=== PATIENT | female | born 1990 | race Two or more races ===

== ENCOUNTER 2020-04-11 17:34 | Observation (INO) | payer OTHER, SELFPAY ==
[~2020-04-11] VITALS: Ht 160 cm; Wt 94.8 kg
[2020-04-11] MEDS ORDERED: FAMOTIDINE 20 MG TAB PO SCH (17:50)
[2020-04-11] MEDS ORDERED: PNV91TAB10 PO (17:55)
[2020-04-11] MEDS ORDERED: PANTOPRAZOLE 40 MG TABEC PO SCH (18:00)
[2020-04-11 18:19] LABS: BASOPHILS % (AUTO) 0.2 % (0.0-2.0); EOSINOPHILS # (AUTO) 0.1 K/uL (0-0.4); EOSINOPHILS % (AUTO) 0.6 % (0.0-4.0); HEMATOCRIT 37.6 % (36-48); HEMOGLOBIN 12.5 g/dL (12.0-16.0); LYMPHOCYTES % (AUTO) 17.9 % (20.5-51.1); MEAN CORPUSCULAR HEMOGLOBIN 30 pg (27-31); MEAN CORPUSCULAR HGB CONC 33 g/dL (33-37); MEAN CORPUSCULAR VOLUME 90.5 fL (80-94); MONOCYTES # (AUTO) 0.9 K/uL (0.8-1.0); MONOCYTES % (AUTO) 7.8 % (1.7-9.3); NEUTROPHILS # (AUTO) 8.1 K/uL (1.8-7.7); NEUTROPHILS % (AUTO) 73.5 % (42.2-75.2); PLATELET COUNT (AUTO) 317 K/uL (140-450); RED BLOOD CELL COUNT(AUTO) 4.16 MIL/uL (4.20-5.40); RED CELL DISTRIBUTION WIDTH 13.2 % (11.6-13.7); WHITE BLOOD COUNT (AUTO) 11.1 K/uL (4.8-10.8)
[2020-04-11 18:24] LABS: APPEARANCE,URINE CLEAR (CLEAR); BILIRUBIN,URINE NEGATIVE (NEGATIVE); BLOOD, URINE NEGATIVE (NEGATIVE); COLOR,URINE YELLOW (YELLOW); LEUKOCYTE ESTERASE ,URINE NEGATIVE (NEGATIVE); NITRITE, URINE NEGATIVE (NEGATIVE); PH,URINE 6.5 (5.0-9.0); UGLUCOSE NEGATIVE (NEGATIVE)
[2020-04-11 18:40] LABS: ALBUMIN 2.8 g/dL (3.4-5.0); ANION GAP 13.7 (8-16); CARBON DIOXIDE 23.9 mmol/L (21-32); CREATININE 0.7 mg/dL (0.6-1.3); POTASSIUM 3.6 mmol/L (3.5-5.1); TOTAL BILIRUBIN 0.6 mg/dL (0.0-1.0)
[2020-04-11] MEDS ORDERED: ONDANSETRON 4 MG/2 ML VIAL IVP PRN (19:00)
[2020-04-11] MEDS ORDERED: MORPHINE SULFATE 5 MG/ML VIAL IVP PRN (19:00)
[2020-04-11] MEDS ORDERED: MORPHINE SULFATE 10 MG/ML VIAL ONE ×2 (19:38→23:00)
[2020-04-11] MEDS: LACTATED RINGERS 1,000 ML IV SCH (19:46)
[2020-04-11] MEDS ORDERED: PROMETHAZINE 25 MG/ML VIAL IVP PRN (19:50)
[2020-04-11] MEDS ORDERED: PROMETHAZINE 25 MG/ML VIAL ONE (19:54)
[2020-04-11] MEDS ORDERED: diphenhydrAMINE 50 MG/ML VIAL ONE (21:39)
[2020-04-11] MEDS ORDERED: diphenhydrAMINE 50 MG/ML VIAL IVP SCH (21:40)
[2020-04-11] MEDS ORDERED: MORPHINE SULFATE 5 MG/ML VIAL IM PRN (22:10)
[2020-04-11] MEDS: PROMETHAZINE 25 MG/ML VIAL IM PRN (23:09)
[2020-04-12] MEDS: LACTATED RINGERS 1,000 ML IV SCH ×2 (01:58→11:00)
[2020-04-12] MEDS ORDERED: MORPHINE SULFATE 10 MG/ML VIAL ONE (05:52)
[2020-04-12] MEDS: PROMETHAZINE 25 MG/ML VIAL IM PRN (05:59)
[2020-04-12 06:00] VITALS: BP 130/63
--- NOTE | 2020-04-12 08:54 | NUR ---
PATIENT HAS BEEN SCREENED AND CATEGORIZED LOW NUTRITION RISK. PATIENT WILL BE SEEN WITHIN 7 DAYS OF ADMISSION. 04/18/[address]
== END 2020-04-12 19:45 | disposition home or self-care (01) ==
LOC: MLD 17:34
PROVIDERS: ADMIT Obstetrics & Gynecology; ATTEND Obstetrics & Gynecology
DX: O99.612 Diseases of the digestive system complicating pregnancy, second trimester (principal); K21.9 Gastro-esophageal reflux disease without esophagitis; Z20.822 Contact with and (suspected) exposure to COVID-19; O21.2 Late vomiting of pregnancy; O99.342 Other mental disorders complicating pregnancy, second trimester; F32.9 Major depressive disorder, single episode, unspecified; O99.512 Diseases of the respiratory system complicating pregnancy, second trimester; J45.909 Unspecified asthma, uncomplicated; O24.912 Unspecified diabetes mellitus in pregnancy, second trimester; Z3A.22 22 weeks gestation of pregnancy
CPT/HCPCS: 36415; 59025; 80053; 81003; 85025; 87426; 96361; 96372; 96374; G0378; J1200; J2270; J2550; J7120; J2405

== ENCOUNTER 2020-04-17 05:17 | Observation (INO) | payer OTHER, SELFPAY ==
[~2020-04-17] VITALS: Ht 157.5 cm; Wt 94.8 kg
[~2020-04-17 05:17] MED LIST: PNV91TAB10 PO
[2020-04-17 07:19] VITALS: BP 124/61
[2020-04-17] MEDS ORDERED: CYCLOBENZAPRINE 10 MG TAB PO SCH (09:00)
--- NOTE | 2020-04-17 09:47 | NUR ---
PATIENT HAS BEEN SCREENED AND CATEGORIZED LOW NUTRITION RISK. PATIENT WILL BE SEEN WITHIN 7 DAYS OF ADMISSION. 04/24/20 MARYANN PARRY MBA, RD
[2020-04-17] MEDS ORDERED: LACTATED RINGERS 1,000 ML IV SCH ×2 (11:35→12:45)
[2020-04-17] MEDS ORDERED: PROMETHAZINE 25 MG/ML VIAL IVP SCH (11:35)
[2020-04-17] MEDS ORDERED: METOCLOPRAMIDE 10 MG/2 ML INJ VIAL IVP SCH (11:35)
[2020-04-17 12:03] LABS: BASOPHILS # (AUTO) 0.1 K/uL (0.00-0.22); BASOPHILS % (AUTO) 0.5 % (0.0-2.0); EOSINOPHILS # (AUTO) 0.1 K/uL (0-0.4); EOSINOPHILS % (AUTO) 0.5 % (0.0-4.0); HEMATOCRIT 40.1 % (36-48); HEMOGLOBIN 13.6 g/dL (12.0-16.0); LYMPHOCYTES # (AUTO) 1.8 K/uL (2.5-16.5); LYMPHOCYTES % (AUTO) 16.2 % (20.5-51.1); MEAN CORPUSCULAR HEMOGLOBIN 31 pg (27-31); MEAN CORPUSCULAR HGB CONC 34 g/dL (33-37); MEAN CORPUSCULAR VOLUME 90.4 fL (80-94); MONOCYTES # (AUTO) 0.7 K/uL (0.8-1.0); NEUTROPHILS # (AUTO) 8.4 K/uL (1.8-7.7); NEUTROPHILS % (AUTO) 76.8 % (42.2-75.2); PLATELET COUNT (AUTO) 326 K/uL (140-450); RED BLOOD CELL COUNT(AUTO) 4.43 MIL/uL (4.20-5.40); RED CELL DISTRIBUTION WIDTH 13.1 % (11.6-13.7)
[2020-04-17 12:19] LABS: ALBUMIN 3.1 g/dL (3.4-5.0); TOTAL BILIRUBIN 0.6 mg/dL (0.0-1.0)
[2020-04-17 12:31] LABS: ANION GAP 15.2 (8-16); CARBON DIOXIDE 25.9 mmol/L (21-32); CREATININE 0.7 mg/dL (0.6-1.3); POTASSIUM 4.1 mmol/L (3.5-5.1)
[2020-04-17] MEDS ORDERED: MORPHINE SULFATE 10 MG/ML VIAL IVP SCH (12:45)
[2020-04-17] MEDS ORDERED: ONDANSETRON 4 MG/2 ML VIAL IVP PRN (12:45)
[2020-04-17 13:01] VITALS: BP 105/53
[2020-04-17 15:49] LABS: BILIRUBIN,URINE 1+ (NEGATIVE); BLOOD, URINE NEGATIVE (NEGATIVE); LEUKOCYTE ESTERASE ,URINE TRACE (NEGATIVE); NITRITE, URINE NEGATIVE (NEGATIVE); UGLUCOSE NEGATIVE (NEGATIVE)
[2020-04-17 15:53] LABS: APPEARANCE,URINE HAZY (CLEAR); COLOR,URINE YELLOW (YELLOW)
[2020-04-17 17:06] LABS: RBC,URINE 0-5 /HPF (0-5)
== END 2020-04-17 17:40 | disposition home or self-care (01) ==
LOC: MLD 05:17
PROVIDERS: ADMIT Obstetrics & Gynecology; ATTEND Obstetrics & Gynecology
DX: O99.891 Other specified diseases and conditions complicating pregnancy (principal); M54.5 Low back pain; O99.612 Diseases of the digestive system complicating pregnancy, second trimester; K80.50 Calculus of bile duct without cholangitis or cholecystitis without obstruction; O26.892 Other specified pregnancy related conditions, second trimester; R10.2 Pelvic and perineal pain; O46.92 Antepartum hemorrhage, unspecified, second trimester; Z3A.23 23 weeks gestation of pregnancy
CPT/HCPCS: 36415; 76705; 76817; 80053; 81001; 82150; 83690; 85025; 87086; 96361; 96374; 96375; G0378; J2270; J2405; J2765; J7120

== ENCOUNTER 2020-05-11 21:09 | Inpatient (IN) | payer OTHER, SELFPAY ==
[~2020-05-11] VITALS: Ht 160 cm; Wt 98.9 kg
[2020-05-11] MEDS ORDERED: FERR325E14 PO (22:05)
[2020-05-11 22:35] LABS: APPEARANCE,URINE SL CLOUDY (CLEAR); BILIRUBIN,URINE NEGATIVE (NEGATIVE); BLOOD, URINE NEGATIVE (NEGATIVE); COLOR,URINE YELLOW (YELLOW); LEUKOCYTE ESTERASE ,URINE NEGATIVE (NEGATIVE); NITRITE, URINE NEGATIVE (NEGATIVE); PH,URINE 7.5 (5.0-9.0); UGLUCOSE NEGATIVE (NEGATIVE)
[2020-05-11 22:35] LABS: BASOPHILS # (AUTO) 0.1 K/uL (0.00-0.22); BASOPHILS % (AUTO) 0.4 % (0.0-2.0); EOSINOPHILS # (AUTO) 0.1 K/uL (0-0.4); EOSINOPHILS % (AUTO) 0.9 % (0.0-4.0); HEMATOCRIT 33.8 % (36-48); HEMOGLOBIN 11.2 g/dL (12.0-16.0); LYMPHOCYTES # (AUTO) 2.1 K/uL (2.5-16.5); LYMPHOCYTES % (AUTO) 15.3 % (20.5-51.1); MEAN CORPUSCULAR HEMOGLOBIN 30 pg (27-31); MEAN CORPUSCULAR HGB CONC 33 g/dL (33-37); MEAN CORPUSCULAR VOLUME 89.8 fL (80-94); MONOCYTES # (AUTO) 0.8 K/uL (0.8-1.0); NEUTROPHILS # (AUTO) 10.5 K/uL (1.8-7.7); NEUTROPHILS % (AUTO) 77.4 % (42.2-75.2); PLATELET COUNT (AUTO) 326 K/uL (140-450); RED BLOOD CELL COUNT(AUTO) 3.76 MIL/uL (4.20-5.40); RED CELL DISTRIBUTION WIDTH 13.4 % (11.6-13.7); WHITE BLOOD COUNT (AUTO) 13.6 K/uL (4.8-10.8)
[2020-05-11 22:55] LABS: ALBUMIN 2.6 g/dL (3.4-5.0); ANION GAP 12.7 (8-16); CARBON DIOXIDE 26.9 mmol/L (21-32); CREATININE 0.7 mg/dL (0.6-1.3); POTASSIUM 3.6 mmol/L (3.5-5.1); TOTAL BILIRUBIN 0.3 mg/dL (0.0-1.0)
[2020-05-11] MEDS ORDERED: MORPHINE SULFATE 10 MG/ML VIAL ONE (22:55)
[2020-05-11] MEDS: ONDANSETRON 4 MG/2 ML VIAL IVP PRN (23:10)
[2020-05-11 23:24] VITALS: BP 126/66
[2020-05-12] MEDS: LACTATED RINGERS 1,000 ML IV SCH ×3 (04:42→18:22)
[2020-05-12] MEDS: PANTOPRAZOLE 40 MG INJ VIAL IVP SCH (07:42)
[2020-05-12] MEDS ORDERED: BETAMETH ACET/BETAMETH NA PH 30 MG/5 ML VIAL IM ONE (08:21)
[2020-05-12] MEDS ORDERED: NACL 0.9% IVP SCH (09:00)
[2020-05-12] MEDS ORDERED: BETAMETH ACET/BETAMETH NA PH 30 MG/5 ML VIAL IM SCH (09:00)
[2020-05-12] MEDS ORDERED: PANTOPRAZOLE IVP SCH (09:00)
--- NOTE | 2020-05-12 09:11 | NUR ---
PATIENT HAS BEEN SCREENED AND CATEGORIZED LOW NUTRITION RISK. PATIENT WILL BE SEEN WITHIN 7 DAYS OF ADMISSION. 05/18/[address]
[2020-05-12] MEDS ORDERED: INSULIN LISPRO SLIDING SCALE 100 UNITS/ML VIAL SUBQ PRN (18:30)
[2020-05-12] MEDS ORDERED: DEXTROSE 50% 50 ML SYR IVP PRN (18:45)
[2020-05-13] MEDS: ONDANSETRON 4 MG/2 ML VIAL IVP PRN (05:46)
[2020-05-13] MEDS ORDERED: BUPIVACAINE-MPF/EPI 0.25% 10 ML VIAL INJ ONE ×2 (07:48→17:42)
[2020-05-13] MEDS ORDERED: LIDOCAINE 1% 500 MG/50 ML VIAL ONE (07:51)
[2020-05-13 08:30] LABS: PROTHROMBIN TIME 9.4 secs (10.8-13.4)
[2020-05-13] MEDS ORDERED: BETAMETH ACET/BETAMETH NA PH 30 MG/5 ML VIAL IM ONE (08:35)
[2020-05-13] MEDS: PANTOPRAZOLE 40 MG INJ VIAL IVP SCH (09:04)
[2020-05-13] MEDS: LACTATED RINGERS 1,000 ML IV SCH ×3 (09:08→23:43)
[2020-05-13] MEDS ORDERED: fentaNYL citrate 0.05 MG/ML VIAL ONE (16:47)
[2020-05-13] MEDS ORDERED: SEVOFLURANE 250 ML BTL INH ONE (16:47)
[2020-05-13] MEDS ORDERED: DEXAMETHASONE 4 MG/ML VIAL ONE (16:47)
[2020-05-13] MEDS ORDERED: PROPOFOL 200 MG/20 ML VIAL IV ONE (16:47)
[2020-05-13] MEDS ORDERED: SUCCINYLCHOLINE CHLORIDE 200 MG/10 ML VIAL IVP ONE (16:47)
[2020-05-13] MEDS ORDERED: HYDROmorphone 1 MG/ML AMP IVP PRN ×2 (17:30→17:55)
[2020-05-13] MEDS ORDERED: BLOOD GLUCOSE MONITORING 1 DEV DEV FS ONE (17:30)
[2020-05-13] MEDS ORDERED: diphenhydrAMINE 50 MG/ML VIAL IVP PRN (17:30)
[2020-05-13] MEDS ORDERED: ONDANSETRON 4 MG/2 ML VIAL IVP PRN (17:30)
[2020-05-13] MEDS: HYDROmorphone PFS 2 MG/ML SYR ONE ×2 (18:05→18:15)
[2020-05-13] MEDS: HYDROcodone/APAP 5/325 MG 1 TAB TAB PO PRN (21:13)
[2020-05-14] MEDS ORDERED: HYDROmorphone PFS 2 MG/ML SYR ONE (00:19)
[2020-05-14] MEDS: LACTATED RINGERS 1,000 ML IV SCH ×3 (01:31→16:30)
[2020-05-14] MEDS: HYDROcodone/APAP 5/325 MG 1 TAB TAB PO PRN (07:48)
[2020-05-14] MEDS: PANTOPRAZOLE 40 MG INJ VIAL IVP SCH (09:17)
[2020-05-14 11:10] LABS: BASOPHILS % (AUTO) 0.1 % (0.0-2.0); EOSINOPHILS % (AUTO) 0.1 % (0.0-4.0); HEMATOCRIT 27.9 % (36-48); HEMOGLOBIN 9.2 g/dL (12.0-16.0); LYMPHOCYTES # (AUTO) 2.4 K/uL (2.5-16.5); LYMPHOCYTES % (AUTO) 16.7 % (20.5-51.1); MEAN CORPUSCULAR HEMOGLOBIN 30 pg (27-31); MEAN CORPUSCULAR HGB CONC 33 g/dL (33-37); MEAN CORPUSCULAR VOLUME 90.2 fL (80-94); NEUTROPHILS % (AUTO) 76.1 % (42.2-75.2); PLATELET COUNT (AUTO) 259 K/uL (140-450); RED BLOOD CELL COUNT(AUTO) 3.09 MIL/uL (4.20-5.40); RED CELL DISTRIBUTION WIDTH 13.6 % (11.6-13.7); WHITE BLOOD COUNT (AUTO) 14.4 K/uL (4.8-10.8)
[2020-05-14 13:24] LABS: ALBUMIN 2.1 g/dL (3.4-5.0); ANION GAP 13.3 (8-16); CARBON DIOXIDE 23.4 mmol/L (21-32); CREATININE 0.7 mg/dL (0.6-1.3); POTASSIUM 3.7 mmol/L (3.5-5.1); TOTAL BILIRUBIN 0.3 mg/dL (0.0-1.0)
[2020-05-14 14:23] LABS: APPEARANCE,URINE CLEAR (CLEAR); BILIRUBIN,URINE NEGATIVE (NEGATIVE); BLOOD, URINE NEGATIVE (NEGATIVE); LEUKOCYTE ESTERASE ,URINE NEGATIVE (NEGATIVE); NITRITE, URINE NEGATIVE (NEGATIVE); PH,URINE 6.5 (5.0-9.0); UGLUCOSE NEGATIVE (NEGATIVE)
[2020-05-14 14:24] LABS: COLOR,URINE STRAW (YELLOW)
[2020-05-14 16:28] LABS: BASOPHILS % (AUTO) 0.2 % (0.0-2.0); EOSINOPHILS # (AUTO) 0.1 K/uL (0-0.4); EOSINOPHILS % (AUTO) 0.4 % (0.0-4.0); HEMATOCRIT 26.7 % (36-48); HEMOGLOBIN 8.8 g/dL (12.0-16.0); LYMPHOCYTES # (AUTO) 2.7 K/uL (2.5-16.5); LYMPHOCYTES % (AUTO) 20.2 % (20.5-51.1); MEAN CORPUSCULAR HEMOGLOBIN 30 pg (27-31); MEAN CORPUSCULAR HGB CONC 33 g/dL (33-37); MEAN CORPUSCULAR VOLUME 89.8 fL (80-94); MONOCYTES % (AUTO) 7.9 % (1.7-9.3); NEUTROPHILS # (AUTO) 9.4 K/uL (1.8-7.7); NEUTROPHILS % (AUTO) 71.3 % (42.2-75.2); PLATELET COUNT (AUTO) 269 K/uL (140-450); RED BLOOD CELL COUNT(AUTO) 2.97 MIL/uL (4.20-5.40); WHITE BLOOD COUNT (AUTO) 13.2 K/uL (4.8-10.8)
[2020-05-14] MEDS: ACETAMINOPHEN 325 MG TAB PO PRN (16:46)
[2020-05-15] MEDS: LACTATED RINGERS 1,000 ML IV SCH ×3 (01:31→19:57)
[2020-05-15 05:59] LABS: BASOPHILS % (AUTO) 0.3 % (0.0-2.0); EOSINOPHILS # (AUTO) 0.1 K/uL (0-0.4); EOSINOPHILS % (AUTO) 1.1 % (0.0-4.0); HEMATOCRIT 27.3 % (36-48); HEMOGLOBIN 8.9 g/dL (12.0-16.0); LYMPHOCYTES # (AUTO) 2.9 K/uL (2.5-16.5); MEAN CORPUSCULAR HEMOGLOBIN 30 pg (27-31); MEAN CORPUSCULAR HGB CONC 33 g/dL (33-37); MEAN CORPUSCULAR VOLUME 90.8 fL (80-94); MONOCYTES # (AUTO) 0.9 K/uL (0.8-1.0); MONOCYTES % (AUTO) 7.5 % (1.7-9.3); NEUTROPHILS # (AUTO) 8.6 K/uL (1.8-7.7); NEUTROPHILS % (AUTO) 68.1 % (42.2-75.2); PLATELET COUNT (AUTO) 286 K/uL (140-450); RED BLOOD CELL COUNT(AUTO) 3.01 MIL/uL (4.20-5.40); RED CELL DISTRIBUTION WIDTH 13.5 % (11.6-13.7); WHITE BLOOD COUNT (AUTO) 12.6 K/uL (4.8-10.8)
[2020-05-15] MEDS: ACETAMINOPHEN 325 MG TAB PO PRN ×2 (07:35→16:31)
[2020-05-15] MEDS: PANTOPRAZOLE 40 MG INJ VIAL IVP SCH (08:50)
[2020-05-15] MEDS: SIMETHICONE 80 MG TAB.CHEW PO PRN ×2 (09:26→21:11)
[2020-05-15] MEDS: DOCUSATE SODIUM 100 MG GELCAP PO PRN ×2 (09:26→21:12)
[2020-05-15] MEDS: bisacodyL 5 MG TABEC PO PRN ×2 (09:26→21:24)
[2020-05-15] MEDS ORDERED: MORPHINE SULFATE 10 MG/ML VIAL ONE ×4 (10:35→22:10)
[2020-05-15] MEDS: MORPHINE SULFATE 5 MG/ML VIAL IVP PRN ×3 (10:41→17:49)
[2020-05-15] MEDS: ONDANSETRON 4 MG/2 ML VIAL IVP PRN ×2 (17:48→22:22)
[2020-05-16] MEDS ORDERED: MORPHINE SULFATE 10 MG/ML VIAL ONE (02:10)
[2020-05-16 02:21] VITALS: BP 119/64
[2020-05-16] MEDS: ONDANSETRON 4 MG/2 ML VIAL IVP PRN (02:21)
[2020-05-16] MEDS: ACETAMINOPHEN 325 MG TAB PO PRN ×2 (03:58→10:05)
[2020-05-16] MEDS: LACTATED RINGERS 1,000 ML IV SCH (04:11)
[2020-05-16 08:11] LABS: BASOPHILS % (AUTO) 0.3 % (0.0-2.0); EOSINOPHILS # (AUTO) 0.1 K/uL (0-0.4); HEMATOCRIT 28.8 % (36-48); HEMOGLOBIN 9.6 g/dL (12.0-16.0); LYMPHOCYTES # (AUTO) 1.9 K/uL (2.5-16.5); LYMPHOCYTES % (AUTO) 18.9 % (20.5-51.1); MEAN CORPUSCULAR HEMOGLOBIN 30 pg (27-31); MEAN CORPUSCULAR HGB CONC 33 g/dL (33-37); MONOCYTES # (AUTO) 0.6 K/uL (0.8-1.0); MONOCYTES % (AUTO) 6.4 % (1.7-9.3); NEUTROPHILS # (AUTO) 7.3 K/uL (1.8-7.7); NEUTROPHILS % (AUTO) 73.4 % (42.2-75.2); PLATELET COUNT (AUTO) 259 K/uL (140-450); RED BLOOD CELL COUNT(AUTO) 3.17 MIL/uL (4.20-5.40); RED CELL DISTRIBUTION WIDTH 13.5 % (11.6-13.7); WHITE BLOOD COUNT (AUTO) 9.9 K/uL (4.8-10.8)
[2020-05-16] MEDS: DOCUSATE SODIUM 100 MG GELCAP PO PRN (08:57)
[2020-05-16] MEDS: PANTOPRAZOLE 40 MG INJ VIAL IVP SCH (08:57)
== END 2020-05-16 10:46 | disposition home or self-care (01) | DRG 951 ==
LOC: MLD 21:09 → OBSVTOIN 21:59 → MFCC 05-12 09:55
PROVIDERS: ADMIT Obstetrics & Gynecology; ATTEND Obstetrics & Gynecology
PROC: 0FT44ZZ Resection of Gallbladder, Percutaneous Endoscopic Approach (ICD-10-PCS; principal; 2020-05-11)
DX: O26.612 Liver and biliary tract disorders in pregnancy, second trimester (principal); O24.112 Pre-existing type 2 diabetes mellitus, in pregnancy, second trimester; O99.612 Diseases of the digestive system complicating pregnancy, second trimester; Z20.822 Contact with and (suspected) exposure to COVID-19; Z3A.26 26 weeks gestation of pregnancy; E11.8 Type 2 diabetes mellitus with unspecified complications; Z83.3 Family history of diabetes mellitus; Z82.49 Family history of ischemic heart disease and other diseases of the circulatory system; K66.0 Peritoneal adhesions (postprocedural) (postinfection); E11.9 Type 2 diabetes mellitus without complications; O99.342 Other mental disorders complicating pregnancy, second trimester; K21.9 Gastro-esophageal reflux disease without esophagitis; Z90.49 Acquired absence of other specified parts of digestive tract; K80.00 Calculus of gallbladder with acute cholecystitis without obstruction; O25.12 Malnutrition in pregnancy, second trimester
CPT/HCPCS: 36415; 51702; 76705; 76805; 76815; 76817; 76819; 80053; 81000; 81003; 82948; 85025; 85610; 85730; 86900; 86901; 88304; 96361; 96372; 96374; 96375; C9113; G0378; J0330; J0702; J1100; J1170; J1815; J2001; J2270; J2405; J2704; J3010; J3490; J7120

== ENCOUNTER 2020-07-09 20:08 | Observation (INO) | payer OTHER, SELFPAY ==
[~2020-07-09 20:08] MED LIST changes: +FERR325E14 PO
[2020-07-09 20:39] VITALS: BP 120/71
== END 2020-07-09 21:00 | disposition home or self-care (01) ==
LOC: MLD 20:08
PROVIDERS: ADMIT Obstetrics & Gynecology; ATTEND Obstetrics & Gynecology
DX: O36.8130 Decreased fetal movements, third trimester, not applicable or unspecified (principal); O62.9 Abnormality of forces of labor, unspecified; O26.893 Other specified pregnancy related conditions, third trimester; R00.0 Tachycardia, unspecified; R82.998 Other abnormal findings in urine; Z3A.34 34 weeks gestation of pregnancy
CPT/HCPCS: 59025; 81000; 87086; G0378

== ENCOUNTER 2020-07-21 15:24 | Inpatient (IN) | payer OTHER, SELFPAY ==
[~2020-07-21] VITALS: Ht 157.5 cm; Wt 103.4 kg
[2020-07-21 16:25] LABS: BASOPHILS % (AUTO) 0.5 % (0.0-2.0); EOSINOPHILS # (AUTO) 0.1 K/uL (0-0.4); EOSINOPHILS % (AUTO) 1.1 % (0.0-4.0); HEMATOCRIT 36.3 % (36-48); LYMPHOCYTES % (AUTO) 23.9 % (20.5-51.1); MEAN CORPUSCULAR HEMOGLOBIN 29 pg (27-31); MEAN CORPUSCULAR HGB CONC 33 g/dL (33-37); MEAN CORPUSCULAR VOLUME 86.6 fL (80-94); MONOCYTES # (AUTO) 0.6 K/uL (0.8-1.0); MONOCYTES % (AUTO) 6.8 % (1.7-9.3); NEUTROPHILS # (AUTO) 5.6 K/uL (1.8-7.7); NEUTROPHILS % (AUTO) 67.7 % (42.2-75.2); PLATELET COUNT (AUTO) 298 K/uL (140-450); RED BLOOD CELL COUNT(AUTO) 4.19 MIL/uL (4.20-5.40); RED CELL DISTRIBUTION WIDTH 14.5 % (11.6-13.7); WHITE BLOOD COUNT (AUTO) 8.2 K/uL (4.8-10.8)
[2020-07-21 16:29] LABS: APPEARANCE,URINE CLEAR (CLEAR); BILIRUBIN,URINE NEGATIVE (NEGATIVE); BLOOD, URINE NEGATIVE (NEGATIVE); COLOR,URINE YELLOW (YELLOW); LEUKOCYTE ESTERASE ,URINE TRACE (NEGATIVE); NITRITE, URINE NEGATIVE (NEGATIVE); PH,URINE 6.5 (5.0-9.0); UGLUCOSE NEGATIVE (NEGATIVE)
[2020-07-21 16:36] LABS: PROTHROMBIN TIME 9.2 secs (10.8-13.4)
[2020-07-21 16:42] LABS: ALBUMIN 2.6 g/dL (3.4-5.0); ANION GAP 13.6 (8-16); CARBON DIOXIDE 24.3 mmol/L (21-32); CREATININE 0.8 mg/dL (0.6-1.3); POTASSIUM 3.9 mmol/L (3.5-5.1); TOTAL BILIRUBIN 0.3 mg/dL (0.0-1.0)
[2020-07-21 16:53] VITALS: BP 129/67
[2020-07-21 16:53] LABS: URIC ACID 4.5 mg/dL (2.6-7.2)
[2020-07-21 16:55] LABS: RBC,URINE 0-5 /HPF (0-5)
[2020-07-21 17:35] LABS: URINE TOTAL PROTEIN 56.5 mg/dL (0-12)
[2020-07-21] MEDS ORDERED: OMEP20EC11 PO (17:58)
[2020-07-21] MEDS ORDERED: PHE25S PO (17:58)
[2020-07-21] MEDS ORDERED: INSU100S5 SQ (17:58)
[2020-07-21] MEDS ORDERED: DOCU-299 PO (17:58)
[2020-07-21] MEDS ORDERED: FAMO-90 PO (17:58)
[2020-07-21] MEDS ORDERED: OSC500 PO (17:58)
[2020-07-21] MEDS ORDERED: METF500T2 PO (17:58)
[2020-07-21] MEDS ORDERED: PYRI-218 PO (17:58)
[2020-07-21] MEDS ORDERED: PROMETHAZINE 25 MG/ML VIAL IM/IVP PRN (19:15)
[2020-07-21] MEDS: LACTATED RINGERS 1,000 ML IV SCH (20:10)
[2020-07-21] MEDS ORDERED: INSULIN NPH HUM/REG INSULIN HM 100 UNIT/ML 10 ML VIAL SUBQ ONE (21:00)
[2020-07-21] MEDS: ACETAMINOPHEN 325 MG TAB PO PRN (21:04)
[2020-07-21] MEDS: INSULIN NPH HUM/REG INSULIN HM 100 UNIT/ML 10 ML VIAL SUBQ SCH (21:51)
[2020-07-22] MEDS: LACTATED RINGERS 1,000 ML IV SCH ×3 (00:19→09:49)
[2020-07-22] MEDS: ACETAMINOPHEN 325 MG TAB PO PRN (06:16)
[2020-07-22] MEDS: DOCUSATE SODIUM 100 MG GELCAP PO SCH (08:49)
[2020-07-22] MEDS: FAMOTIDINE 20 MG TAB PO SCH (08:49)
[2020-07-22 08:52] LABS: APPEARANCE,URINE CLEAR (CLEAR); BILIRUBIN,URINE NEGATIVE (NEGATIVE); BLOOD, URINE NEGATIVE (NEGATIVE); COLOR,URINE YELLOW (YELLOW); LEUKOCYTE ESTERASE ,URINE 2+ (NEGATIVE); NITRITE, URINE NEGATIVE (NEGATIVE); UGLUCOSE NEGATIVE (NEGATIVE)
--- NOTE | 2020-07-22 08:53 | NUR ---
PATIENT HAS BEEN SCREENED AND CATEGORIZED LOW NUTRITION RISK. PATIENT WILL BE SEEN WITHIN 7 DAYS OF ADMISSION. 07/28/[address]
[2020-07-22] MEDS ORDERED: PANTOPRAZOLE 40 MG TABEC PO SCH (09:00)
[2020-07-22 09:35] LABS: RBC,URINE 0-5 /HPF (0-5)
[2020-07-22] MEDS: INSULIN LISPRO SLIDING SCALE 100 UNITS/ML VIAL SUBQ PRN ×2 (10:05→13:30)
[2020-07-22] MEDS ORDERED: BLOOD GLUCOSE MONITORING 1 DEV DEV FS SCH (18:00)
[2020-07-22] MEDS: INSULIN NPH HUM/REG INSULIN HM 100 UNIT/ML 10 ML VIAL SUBQ SCH (22:00)
[2020-07-23] MEDS ORDERED: DEXTROSE 50% 50 ML SYR IVP ONE (00:51)
[2020-07-23] MEDS: FAMOTIDINE 20 MG TAB PO SCH (08:37)
[2020-07-23] MEDS: DOCUSATE SODIUM 100 MG GELCAP PO SCH (08:37)
[2020-07-23] MEDS: INSULIN LISPRO SLIDING SCALE 100 UNITS/ML VIAL SUBQ PRN (09:40)
[2020-07-23] MEDS: NACL 0.9% 1,000 ML IV SCH ×2 (10:32→16:19)
[2020-07-23] MEDS ORDERED: AMPICILLIN 2,000 MG in NACL 0.9% MINI-BAG PLUS 100 ML IV SCH (16:15)
[2020-07-23] MEDS ORDERED: AMPICILLIN 2,000 MG VIAL ONE (17:50)
[2020-07-23] MEDS ORDERED: OXYTOCIN 20 UNITS in LACTATED RINGERS 1,000 ML IV SCH (19:30)
[2020-07-23] MEDS ORDERED: MORPHINE SULFATE 5 MG/ML VIAL IVP PRN (19:30)
[2020-07-23] MEDS: MISOPROSTOL 25 MCG TAB VG SCH (20:11)
[2020-07-23] MEDS ORDERED: INSULIN NPH HUMAN ISOPHANE 100 UNIT/ML VIAL SUBQ SCH (21:00)
[2020-07-23] MEDS ORDERED: AMPICILLIN 1,000 MG VIAL ONE (22:00)
[2020-07-23] MEDS: AMPICILLIN 1,000 MG in NACL 0.9% MINI-BAG PLUS 50 ML IV SCH (22:09)
[2020-07-24] MEDS ORDERED: AMPICILLIN 1,000 MG VIAL ONE ×3 (01:48→09:57)
[2020-07-24] MEDS: AMPICILLIN 1,000 MG in NACL 0.9% MINI-BAG PLUS 50 ML IV SCH ×3 (01:59→10:05)
[2020-07-24] MEDS: MISOPROSTOL 25 MCG TAB VG SCH ×2 (02:02→08:30)
[2020-07-24] MEDS: LACTATED RINGERS 1,000 ML IV SCH ×3 (04:09→15:30)
[2020-07-24] MEDS: FAMOTIDINE 20 MG TAB PO SCH (09:08)
[2020-07-24] MEDS: DOCUSATE SODIUM 100 MG GELCAP PO SCH (09:08)
[2020-07-24] MEDS ORDERED: ceFAZolin 1,000 MG VIAL IVP ONE (13:45)
[2020-07-24] MEDS ORDERED: HYDROmorphone PFS 2 MG/ML SYR ONE ×2 (13:58→15:00)
[2020-07-24 14:50] LABS: BASOPHILS % (AUTO) 0.3 % (0.0-2.0); EOSINOPHILS # (AUTO) 0.1 K/uL (0-0.4); EOSINOPHILS % (AUTO) 0.7 % (0.0-4.0); HEMATOCRIT 25.9 % (36-48); HEMOGLOBIN 8.3 g/dL (12.0-16.0); LYMPHOCYTES # (AUTO) 2.5 K/uL (2.5-16.5); LYMPHOCYTES % (AUTO) 22.4 % (20.5-51.1); MEAN CORPUSCULAR HEMOGLOBIN 28 pg (27-31); MEAN CORPUSCULAR HGB CONC 32 g/dL (33-37); MEAN CORPUSCULAR VOLUME 88.1 fL (80-94); MONOCYTES # (AUTO) 0.6 K/uL (0.8-1.0); MONOCYTES % (AUTO) 5.5 % (1.7-9.3); NEUTROPHILS # (AUTO) 7.9 K/uL (1.8-7.7); NEUTROPHILS % (AUTO) 71.1 % (42.2-75.2); PLATELET COUNT (AUTO) 296 K/uL (140-450); RED BLOOD CELL COUNT(AUTO) 2.94 MIL/uL (4.20-5.40)
[2020-07-24] MEDS: HYDROmorphone 1 MG/ML AMP IVP PRN ×4 (14:55→15:25)
[2020-07-24] MEDS ORDERED: METHYLERGONOVINE 0.2 MG/ML AMP IM PRN (16:25)
[2020-07-24] MEDS ORDERED: bisacodyL 5 MG TABEC PO PRN (16:25)
[2020-07-24] MEDS ORDERED: MEASLES, MUMPS, AND RUBELLA 1 VIAL SQVAC PRN (16:25)
[2020-07-24] MEDS ORDERED: OXYTOCIN 20 UNITS/LR PREMIX 1,000 ML IV ONE (17:31)
[2020-07-24] MEDS: KETOROLAC 30 MG/ML VIAL IVP PRN ×2 (17:50→23:37)
[2020-07-25] MEDS ORDERED: OXYTOCIN 20 UNITS/LR PREMIX 1,000 ML IV ONE (01:20)
[2020-07-25] MEDS: KETOROLAC 30 MG/ML VIAL IVP PRN ×2 (05:43→15:15)
[2020-07-25 06:10] LABS: BASOPHILS % (AUTO) 0.2 % (0.0-2.0); EOSINOPHILS % (AUTO) 0.3 % (0.0-4.0); LYMPHOCYTES # (AUTO) 1.7 K/uL (2.5-16.5); LYMPHOCYTES % (AUTO) 15.2 % (20.5-51.1); MEAN CORPUSCULAR HEMOGLOBIN 29 pg (27-31); MEAN CORPUSCULAR HGB CONC 33 g/dL (33-37); MONOCYTES # (AUTO) 0.7 K/uL (0.8-1.0); MONOCYTES % (AUTO) 6.5 % (1.7-9.3); NEUTROPHILS # (AUTO) 8.7 K/uL (1.8-7.7); NEUTROPHILS % (AUTO) 77.8 % (42.2-75.2); PLATELET COUNT (AUTO) 236 K/uL (140-450); RED CELL DISTRIBUTION WIDTH 14.7 % (11.6-13.7); WHITE BLOOD COUNT (AUTO) 11.1 K/uL (4.8-10.8)
[2020-07-25 06:19] LABS: HEMOGLOBIN 6.6 g/dL (12.0-16.0)
[2020-07-25] MEDS ORDERED: ACETAMINOPHEN EXTRA STRENGTH 500 MG TAB PO SCH (06:50)
[2020-07-25] MEDS ORDERED: diphenhydrAMINE 50 MG/ML VIAL IVP SCH (06:50)
[2020-07-25] MEDS: FAMOTIDINE 20 MG TAB PO SCH (09:06)
[2020-07-25] MEDS: DOCUSATE SODIUM 100 MG GELCAP PO SCH (09:06)
[2020-07-25] MEDS: oxyCODONE/APAP 5/325 MG 1 TAB TAB PO PRN (20:37)
[2020-07-25] MEDS ORDERED: INSULIN NPH HUMAN ISOPHANE 100 UNIT/ML VIAL SUBQ SCH (21:30)
[2020-07-25] MEDS: INSULIN NPH HUMAN ISOPHANE 100 UNIT/ML VIAL SUBQ SCH (22:12)
[2020-07-26] MEDS: oxyCODONE/APAP 5/325 MG 1 TAB TAB PO PRN ×4 (02:39→20:34)
[2020-07-26 05:39] LABS: BASOPHILS % (AUTO) 0.3 % (0.0-2.0); EOSINOPHILS # (AUTO) 0.2 K/uL (0-0.4); EOSINOPHILS % (AUTO) 2.1 % (0.0-4.0); HEMATOCRIT 25.5 % (36-48); HEMOGLOBIN 8.4 g/dL (12.0-16.0); LYMPHOCYTES # (AUTO) 2.6 K/uL (2.5-16.5); LYMPHOCYTES % (AUTO) 22.4 % (20.5-51.1); MEAN CORPUSCULAR HEMOGLOBIN 28 pg (27-31); MEAN CORPUSCULAR HGB CONC 33 g/dL (33-37); MEAN CORPUSCULAR VOLUME 85.2 fL (80-94); MONOCYTES # (AUTO) 0.9 K/uL (0.8-1.0); MONOCYTES % (AUTO) 7.6 % (1.7-9.3); NEUTROPHILS # (AUTO) 7.9 K/uL (1.8-7.7); NEUTROPHILS % (AUTO) 67.6 % (42.2-75.2); PLATELET COUNT (AUTO) 260 K/uL (140-450); RED BLOOD CELL COUNT(AUTO) 2.99 MIL/uL (4.20-5.40); RED CELL DISTRIBUTION WIDTH 14.7 % (11.6-13.7); WHITE BLOOD COUNT (AUTO) 11.7 K/uL (4.8-10.8)
[2020-07-26] MEDS: SIMETHICONE 80 MG TAB.CHEW PO PRN ×2 (08:48→20:33)
[2020-07-26] MEDS: FAMOTIDINE 20 MG TAB PO SCH (08:48)
[2020-07-26] MEDS: DOCUSATE SODIUM 100 MG GELCAP PO SCH (08:49)
[2020-07-26] MEDS ORDERED: INSULIN NPH HUMAN ISOPHANE 100 UNIT/ML VIAL SUBQ SCH (21:00)
[2020-07-26] MEDS: INSULIN NPH HUMAN ISOPHANE 100 UNIT/ML VIAL SUBQ SCH (21:51)
[2020-07-27] MEDS: oxyCODONE/APAP 5/325 MG 1 TAB TAB PO PRN ×3 (03:07→14:14)
[2020-07-27] MEDS: FAMOTIDINE 20 MG TAB PO SCH (08:22)
[2020-07-27] MEDS: DOCUSATE SODIUM 100 MG GELCAP PO SCH (08:22)
== END 2020-07-27 18:45 | disposition home or self-care (01) | DRG 786 ==
LOC: MLD 15:24 → MFCC 07-22 19:44 → OBSVTOIN 07-23 08:06 → MFCC 07-24 11:00
PROVIDERS: ADMIT Obstetrics & Gynecology; ATTEND Obstetrics & Gynecology
PROC: 3E0234Z Introduction of Serum, Toxoid and Vaccine into Muscle, Percutaneous Approach (ICD-10-PCS; 2020-07-24)
PROC: 3E0134Z Introduction of Serum, Toxoid and Vaccine into Subcutaneous Tissue, Percutaneous Approach (ICD-10-PCS; 2020-07-24)
PROC: 10D00Z1 Extraction of Products of Conception, Low, Open Approach (ICD-10-PCS; principal; 2020-07-24 13:30)
PROC: 30233N1 Transfusion of Nonautologous Red Blood Cells into Peripheral Vein, Percutaneous Approach (ICD-10-PCS; 2020-07-25)
DX: O24.12 Pre-existing type 2 diabetes mellitus, in childbirth (principal); O44.13 Complete placenta previa with hemorrhage, third trimester; E11.9 Type 2 diabetes mellitus without complications; O69.81X0 Labor and delivery complicated by cord around neck, without compression, not applicable or unspecified; O13.4 Gestational [pregnancy-induced] hypertension without significant proteinuria, complicating childbirth; Z20.822 Contact with and (suspected) exposure to COVID-19; O99.02 Anemia complicating childbirth; O99.824 Streptococcus B carrier state complicating childbirth; D64.9 Anemia, unspecified; Z90.49 Acquired absence of other specified parts of digestive tract; Z3A.36 36 weeks gestation of pregnancy; Z37.0 Single live birth; Z79.4 Long term (current) use of insulin; Z23 Encounter for immunization
CPT/HCPCS: 36415; 51702; 59200; 76815; 76817; 80053; 81001; 82570; 82947; 82948; 84550; 85025; 85384; 85610; 85730; 86592; 86886; 86900; 86901; 86920; 87086; 87653-90; G0378; J0290; J0690; J0696; J1170; J1200; J1815; J1885; J2550; J2590; J7030; J7060; J7120; P9016